=== PATIENT | male | born 1955 | race Caucasian/White ===

== ENCOUNTER 2018-10-25 05:20 | Emergency (ER) | payer OTHER ==
[~2018-10-25] VITALS: Ht 182.9 cm; Wt 122.5 kg
[2018-10-25 05:23] VITALS: Ht 182.9 cm; Wt 122.5 kg
== END 2018-10-25 10:17 | disposition expired ==
LOC: ED 05:20
DX: I46.9 Cardiac arrest, cause unspecified (principal)
CPT/HCPCS: J0171; J3490